=== PATIENT | female | born 1995 | race Caucasian/White ===

== ENCOUNTER 2016-12-05 10:53 | Emergency (ER) | payer OTHER ==
[2016-12-05 11:33] VITALS: BP 127/64
--- NOTE | 2016-12-05 13:02 | UC ---
Throat Pain/Nasal Clive HPI - HPI Summary HPI Summary: FOUR DAYS OF SORE THROAT RIGHT EAR ACHE, RIGHT FACIAL PAIN. NO FEVER. NO ABDOMINAL PAIN. NO HEADACHE NO NECK STIFFNESS. - History of Current Complaint Chief Complaint: UCRespiratory Stated Complaint: SORE THROAT,RIGHT EAR PAIN Time Seen by Provider: 12/05/16 11:52 Hx Obtained From: Patient Hx Last Menstrual Period: 11/17/16 Onset/Duration: Gradual Onset, Lasting Days, Still Present Severity: Moderate Pain Intensity: 8 Pain Scale Used: 0-10 Numeric Cough: None Associated Signs & Symptoms: Positive: Hoarseness, Sinus Discomfort - Epiglottits Risk Factors Epiglottis Risk Factors: Negative - Allergies/Home Medications Allergies/Adverse Reactions: Allergies Allergy/AdvReac Type Severity Reaction Status Date / Time No Known Allergies Allergy Verified 12/05/16 11:28 Home Medications: Home Medications [id number] [Daytime/Nite Time Cold/Fl] 2 cap PO BID PRN [History Confirmed 12/05/16] PMH/Surg Hx/FS Hx/Imm Hx Previously Healthy: Yes - Surgical History Surgical History: None - Family History Known Family History: Negative: Respiratory Disease - Social History Occupation: Student Lives: With Family Alcohol Use: None Substance Use Type: None Smoking Status (MU): Never Smoked Tobacco Review of Systems Constitutional: Fatigue Skin: Negative Eyes: Negative ENT: Sore Throat, Ear Ache, Sinus Congestion, Sinus Pain/Tenderness Respiratory: Negative Cardiovascular: Negative Gastrointestinal: Negative Genitourinary: Negative Motor: Negative Neurovascular: Negative Musculoskeletal: Negative Neurological: Negative Psychological: Negative Is Patient Immunocompromised?: No All Other Systems Reviewed And Are Negative: Yes Physical Exam Triage Information Reviewed: Yes Appearance: No Pain Distress, Well-Nourished, Ill-Appearing Vital Signs: Initial Vital Signs Temp 97.4 F 12/05/16 11:29 Pulse 75 12/05/16 11:29 Resp 14 12/05/16 11:29 BP 127/64 12/05/16 11:29 Pulse Ox 100 12/05/16 11:29 Vital Signs Reviewed: Yes Eye Exam: Normal Eyes: Positive: Conjunctiva Clear ENT: Positive: Pharynx normal, Pharyngeal erythema, TM dull, TM red - RIGHT Dental Exam: Normal Neck exam: Normal Neck: Positive: Supple, Nontender, No Lymphadenopathy Respiratory Exam: Normal Respiratory: Positive: Chest non-tender, Lungs clear, Normal breath sounds, No respiratory distress, No accessory muscle use Cardiovascular Exam: Normal Cardiovascular: Positive: RRR, No Murmur, Pulses Normal, Brisk Capillary Refill Abdominal Exam: Normal Musculoskeletal Exam: Normal Musculoskeletal: Positive: Strength Intact, ROM Intact Neurological Exam: Normal Psychological Exam: Normal Psychological: Positive: Normal Response To Family Skin Exam: Normal Throat Pain/Nasal Course/Dx - Differential Dx/Diagnosis Differential Diagnosis/HQI/PQRI: Otitis Media, Pharyngitis, Sinusitis, Tonsillitis, URI Provider Diagnoses: RIGHT OTITIS MEDIA; SINUSITS Discharge - Discharge Plan Condition: Stable Disposition: HOME Prescriptions: Amoxicillin/Clavulanate TAB* [Augmentin TAB 875*] 875 mg PO BID #20 tab Benzonatate CAP* [Tessalon 100 MG CAP*] 100 mg PO TID PRN #15 cap PRN Reason: Cough Patient Education Materials: Sinusitis (ED), Otitis Media (ED) Referrals: Non Staff,Doctor [Primary Care Provider] -
== END 2016-12-05 12:06 | disposition home or self-care (01) ==
LOC: UCCORT 10:53
DX: H66.91 Otitis media, unspecified, right ear (principal); J32.9 Chronic sinusitis, unspecified
CPT/HCPCS: 99212; G0463